=== PATIENT | female | born 1980 | race Caucasian/White ===

== ENCOUNTER 2021-07-01 16:36 | Observation (INO) | payer OTHER ==
[~2021-07-01] VITALS: Ht 167.6 cm; Wt 80.7 kg
[2021-07-01] MEDS ORDERED: LACTATED RINGERS 1,000 ML IV SCH (17:00)
[2021-07-01] MEDS: TERBUTALINE SULFATE 1MG/ML VIAL SUBCUT PRN ×2 (17:19→17:47)
[2021-07-01 17:23] LABS: CLARITY URINE TURBID (CLEAR); COLOR URINE YELLOW (YELLOW); KETONES URINE 1+ (NEGATIVE); LEUKOCYTE ESTERASE URINE 3+ (NEGATIVE); NITRITE URINE POSITIVE (NEGATIVE); OCCULT BLOOD URINE 1+ (NEGATIVE); PROTEIN URINE 1+ (NEGATIVE); SPECIFIC GRAVITY URINE 1.019 (1.005-1.030)
[2021-07-01] MEDS ORDERED: CLINDAMYCIN 900 MG in DEXTROSE 5% WATER 50 ML IV ONE (18:45)
[2021-07-01] MEDS ORDERED: CLINDAMYCIN IN 0.9 % SOD CHLOR 50 ML IV NR (20:00)
== END 2021-07-01 21:33 | disposition home or self-care (01) ==
LOC: 8 EST LDRP 16:36
PROVIDERS: ADMIT Obstetrics & Gynecology; ATTEND Obstetrics & Gynecology
DX: O26.893 Other specified pregnancy related conditions, third trimester (principal); R10.30 Lower abdominal pain, unspecified; R35.0 Frequency of micturition; O99.891 Other specified diseases and conditions complicating pregnancy; M54.9 Dorsalgia, unspecified; Z3A.33 33 weeks gestation of pregnancy
CPT/HCPCS: 59025; 76805; 76818; 81003; 87077; 87086; 87186; 96361; 96365; 96366; 96372; G0378; J3105; J3490; 96360; 99281; J7120